=== PATIENT | male | born 1995 | race Caucasian/White ===

== ENCOUNTER 2018-04-10 06:16 | Emergency (ER) | payer OTHER ==
--- NOTE | 2018-04-10 06:45 | ER Document Report ---
ED General - General Chief Complaint: Passed Out Prior to Arrival Stated Complaint: KNEE SWELLING Time Seen by Provider: 04/10/18 06:43 Mode of Arrival: Ambulatory Information source: Patient Notes: 22-year-old male with no reported past medical history presents via private vehicle from home after having 2 syncopal episodes this morning. Patient states that he awoke this morning and went to the bathroom. He states that he was sitting on the toilet when he experienced a sharp lower quadrant abdominal pain which caused him to pass out. Patient states that he became clammy, nauseous and the next thing he knew he was waking up on the toilet. He denies falling off the toilet, hitting his head. He states that he then went to his parents room to awake his father and collapsed again. Patient recently returned from a trip to [place]. He reports that yesterday he had a generalized aching feeling. He denies any fever, chills, nausea, vomiting, dysuria, hematuria. Associated symptoms included palpitations, chest heaviness and shortness of breath. Patient also complaining of left knee swelling that started 2 days prior to arrival without injury. Father is at the bedside and denies any family history of early cardiac , disease. TRAVEL OUTSIDE OF THE [place] IN LAST 30 DAYS: No - HPI Onset: Just prior to arrival Onset/Duration: Sudden Severity: Mild Associated symptoms: Body/muscle aches, Chest pain, Shortness of breath. denies : Fever, Headache, Hurts to breath, Nausea, Vomiting Exacerbated by: Denies Relieved by: Denies Similar symptoms previously: No Recently seen / treated by doctor: No - Related Data Allergies/Adverse Reactions: oxycodone Allergy (Verified 04/10/18 06:21) Past Medical History - General Information source: Patient, Parent, Relative - Social History Smoking Status: Never Smoker Frequency of alcohol use: None Drug Abuse: None Lives with: Family, Spouse/Significant other Family History: Reviewed & Not Pertinent Patient has suicidal ideation: No Patient has homicidal ideation: No - Medical History Medical History: Negative Review of Systems - Review of Systems Notes: REVIEW OF SYSTEMS: CONSTITUTIONAL : Denies fever, chills, or sweats. Denies recent illness. Denies weight loss, recent hospitalizations. EENT: Denies visual changes, eye pain. Denies nasal or sinus congestion or discharge. Denies sore throat, oral lesions, difficulty swallowing. CARDIOVASCULAR: Denies chest pain. Denies palpitations. Denies lower extremity edema. RESPIRATORY: Denies cough, cold, or chest congestion. Denies shortness of breath, wheezing. GASTROINTESTINAL: Denies abdominal pain or distention. Denies nausea, vomiting , or diarrhea. Denies blood in vomitus, stools, or per rectum. Denies black, tarry stools. Denies constipation. GENITOURINARY: Denies difficulty urinating, painful urination, frequency, blood in urine, or vaginal discharge. MUSCULOSKELETAL: Denies back or neck pain or stiffness. SKIN: Denies rash, lesions or sores. HEMATOLOGIC : Denies easy bruising or bleeding. LYMPHATIC: Denies swollen glands. NEUROLOGICAL: Denies confusion or altered mental status. Denies dizziness or lightheadedness. Denies headache. Denies weakness or paralysis. Denies problems difficulty with ambulation, slurred speech. Denies sensory loss, numbness, or tingling. Denies seizures. PSYCHIATRIC: Denies anxiety or stress. Denies depression, suicidal ideation, or homicidal ideation. Denies visual or auditory hallucinations. Physical Exam - Vital signs Vitals: Temp Pulse Resp BP Pulse Ox 99.4 F 72 18 122/69 100 04/10/18 06:35 04/10/18 06:35 04/10/18 06:35 04/10/18 06:35 04/10/18 06:35 - Notes Notes: PHYSICAL EXAMINATION: GENERAL: Well-appearing, well-nourished and in no acute distress. HEAD: Atraumatic, normocephalic. EYES: Pupils equal round and reactive to light, extraocular movements intact, sclera anicteric, conjunctiva are normal. ENT: Nares patent, oropharynx clear without exudates. Moist mucous membranes. NECK: Normal range of motion, supple without lymphadenopathy LUNGS: Breath sounds clear to auscultation bilaterally and equal. No wheezes rales or rhonchi. HEART: Regular rate and rhythm without murmurs ABDOMEN: Soft, nontender, nondistended abdomen. No guarding, no rebound. No masses appreciated. Musculoskeletal: Left knee with prepatellar bursitis, no erythema, no warmth, full range of motion. NEUROLOGICAL: Cranial nerves grossly intact. Normal speech, normal gait. Normal sensory, motor exams PSYCH: Normal mood, normal affect. SKIN: Warm, Dry, normal turgor, no rashes or lesions noted. Course - Re-evaluation Re-evalutation: Laboratory 04/10/18 04/10/18 04/10/18 07:02 07:02 07:02 WBC 12.9 H RBC 4.76 Hgb 14.5 Hct 42.0 MCV 88 MCH 30.5 MCHC 34.5 RDW 12.9 Plt Count 228 Seg Neutrophils % 76.3 Lymphocytes % 11.4 L Monocytes % 10.8 Eosinophils % 1.3 Basophils % 0.2 Absolute Neutrophils 9.9 H Absolute Lymphocytes 1.5 Absolute Monocytes 1.4 Absolute Eosinophils 0.2 Absolute Basophils 0.0 D-Dimer 0.47 Sodium 144.2 Potassium 4.4 Chloride 101 Carbon Dioxide 30 Anion Gap 13 BUN 15 Creatinine 0.78 Est GFR ( Amer) > 60 Est GFR (Non-Af Amer) > 60 Glucose 110 Calcium 9.6 Total Bilirubin 0.4 Direct Bilirubin 0.3 Neonat Total Bilirubin Not Reportable Neonat Direct Bilirubin Not Reportable Neonat Indirect Bili Not Reportable AST 16 L ALT 19 L Alkaline Phosphatase 69 Troponin I Total Protein 7.1 Albumin 4.6 Urine Color Urine Appearance Urine pH Ur Specific [place] Urine Protein Urine Glucose (UA) Urine Ketones Urine Blood Urine Nitrite Urine Bilirubin Urine Urobilinogen Ur Leukocyte Esterase Urine WBC (Auto) Urine RBC (Auto) Urine Bacteria (Auto) Amorphous Sediment Auto Urine Mucus (Auto) Urine Ascorbic Acid Urine Opiates Screen Urine Methadone Screen Ur Barbiturates Screen Ur Phencyclidine Scrn Ur Amphetamines Screen U Benzodiazepines Scrn Urine Cocaine Screen U Marijuana (THC) Screen 04/10/18 04/10/18 04/10/18 07:02 09:45 09:45 WBC RBC Hgb Hct MCV MCH MCHC RDW Plt Count Seg Neutrophils % Lymphocytes % Monocytes % Eosinophils % Basophils % Absolute Neutrophils Absolute Lymphocytes Absolute Monocytes Absolute Eosinophils Absolute Basophils D-Dimer Sodium Potassium Chloride Carbon Dioxide Anion Gap BUN Creatinine Est GFR ( Amer) Est GFR (Non-Af Amer) Glucose Calcium Total Bilirubin Direct Bilirubin Neonat Total Bilirubin Neonat Direct Bilirubin Neonat Indirect Bili AST ALT Alkaline Phosphatase Troponin I < 0.012 Total Protein Albumin Urine Color YELLOW Urine Appearance CLEAR Urine pH 7.0 Ur Specific [place] 1.019 Urine Protein NEGATIVE Urine Glucose (UA) NEGATIVE Urine Ketones NEGATIVE Urine Blood NEGATIVE Urine Nitrite NEGATIVE Urine Bilirubin NEGATIVE Urine Urobilinogen NEGATIVE Ur Leukocyte Esterase NEGATIVE Urine WBC (Auto) 4 Urine RBC (Auto) 0 Urine Bacteria (Auto) TRACE Amorphous Sediment Auto TRACE Urine Mucus (Auto) RARE Urine Ascorbic Acid NEGATIVE Urine Opiates Screen NEGATIVE Urine Methadone Screen NEGATIVE Ur Barbiturates Screen NEGATIVE Ur Phencyclidine Scrn NEGATIVE Ur Amphetamines Screen NEGATIVE U Benzodiazepines Scrn NEGATIVE Urine Cocaine Screen NEGATIVE U Marijuana (THC) Screen NEGATIVE Chest X-Ray 04/10/18 07:01 IMPRESSION: No acute cardiopulmonary findings. Knee X-Ray 04/10/18 07:01 IMPRESSION: Small left knee effusion. 04/10/18 08:29 Patient is orthostatic negative 04/10/18 15:56 04/10/18 15:57 22-year-old male with no reported past medical history presents via private vehicle from home after having 2 syncopal episodes this morning. Patient states that he awoke this morning and went to the bathroom. He states that he was sitting on the toilet when he experienced a sharp lower quadrant abdominal pain which caused him to pass out. Patient states that he became clammy, nauseous and the next thing he knew he was waking up on the toilet. He denies falling off the toilet, hitting his head. He states that he then went to his parents room to awake his father and collapsed again. Patient recently returned from a trip to [place]. He reports that yesterday he had a generalized aching feeling. Patient was seen by myself upon arrival. Vital signs were reviewed. Patient is afebrile, normotensive and not hypoxic. Patient does not appear toxic or dehydrated. They are in no acute distress. Previous medical records and nursing notes reviewed. Significant findings include mild swelling of the left knee that is not consistent with septic joint. Patient's labs are essentially normal except for a mildly elevated white count. Patient received IV fluids, Zofran, Toradol during his ED course. On reevaluation patient states he is feeling better. He has not had a recurrence of nausea, abdominal pain or dizziness. Because of the patient's recent trip to [place] his general malaise and myalgia I did test for Lyme and Bug Tussle spotted fever. Doxycycline prescribed. Patient advised not to drive until seen by his primary care physician. Patient will follow up with his primary care physician when he gets home in the next few days. Patient provided the opportunity to ask questions, and express concerns. Discharge instructions discussed. Patient is agreeable with discharge home. Return indications explained and discussed with the patient who displays understanding. Patient encouraged to return to the emergency department immediately with any concerns. - Vital Signs Vital signs: Temp Pulse Resp BP Pulse Ox 99.4 F 82 18 108/60 100 04/10/18 06:35 04/10/18 08:25 04/10/18 06:35 04/10/18 10:00 04/10/18 10:00 - Laboratory Result Diagrams: 04/10/18 07:02 04/10/18 07:02 Laboratory results interpreted by me: 04/10/18 04/10/18 07:02 07:02 WBC 12.9 H Lymphocytes % 11.4 L Absolute Neutrophils 9.9 H AST 16 L ALT 19 L - Diagnostic Test Radiology reviewed: Image reviewed, Reports reviewed - EKG Interpretation by Me EKG shows normal: Sinus rhythm Rate: Normal Rhythm: NSR When compared to previous EKG there are: Previous EKG unavailable Discharge - Discharge Clinical Impression: Vasovagal syncope, Myalgia Left knee pain Qualifiers: Chronicity: acute Qualified Code(s): M25.562 - Pain in left knee Leukocytosis Qualifiers: Leukocytosis type: unspecified Qualified Code(s): D72.829 - Elevated white blood cell count, unspecified Condition: Good Disposition: HOME, SELF-CARE Instructions: Knee Effusion ([facility]), Syncopal Episode ([facility]), Viral Syndrome ([facility]) Additional Instructions: Do not drive until evaluated by your primary care physician. Follow up with your physician tomorrow for further care or return to the ED IMMEDIATELY if symptoms worsen or new concerns occur. If you cannot afford to follow up with your primary care physician a list of low cost clinics have been provided at the end of your discharge papers as well. Prescriptions: Doxycycline Hyclate 100 mg PO BID #14 capsule Referrals: CHELSEA MUJICA MD [NO LOCAL MD] - Follow up as needed
[2018-04-10 07:19] LABS: ABSOLUTE EOSINOPHILS # (AUTO) 0.2 10^3/uL (0.0-0.6); ABSOLUTE LYMPHOCYTES (AUTO) 1.5 10^3/uL (0.5-4.7); ABSOLUTE MONOCYTES (AUTO) 1.4 10^3/uL (0.1-1.4); ABSOLUTE NEUT (AUTO) 9.9 10^3/uL (1.7-8.2); BASOPHILS % (AUTO) 0.2 % (0-2); EOSINOPHILS % (AUTO) 1.3 % (0-6); HEMOGLOBIN 14.5 g/dL (13.5-17.0); LYMPHOCYTES % (AUTO) 11.4 % (13-45); MEAN CORPUSCULAR HEMOGLOBIN 30.5 pg (27.0-33.4); MEAN CORPUSCULAR HGB CONC 34.5 g/dL (32.0-36.0); MEAN CORPUSCULAR VOLUME 88 fl (80-97); MONOCYTES % (AUTO) 10.8 % (3-13); PLATELET COUNT 228 10^3/uL (150-450); RED BLOOD COUNT 4.76 10^6/uL (4.35-5.55); RED CELL DISTRIBUTION WIDTH 12.9 % (11.5-14.0); SEGMENTED NEUTROPHILS % (AUTO) 76.3 % (42-78); TOTAL CELLS COUNTED % (AUTO) 100 %; WHITE BLOOD COUNT 12.9 10^3/uL (4.0-10.5)
--- NOTE | 2018-04-10 07:19 | EKG REPORT ---
SEVERITY:- BORDERLINE ECG - SINUS RHYTHM CONSIDER RIGHT VENTRICULAR HYPERTROPHY : Confirmed by: Amilcar Hernández MD 10-Apr-2018 07:18:24
--- NOTE | 2018-04-10 07:23 | RADIOLOGY REPORT (SQ) ---
EXAM DESCRIPTION: XR CHEST 2 VIEWS COMPLETED DATE/TME: 04/10/2018 07:01 CLINICAL HISTORY: 22 years Male, swelling COMPARISON: None. FINDINGS: Increased lung volume, clear parenchyma, normal cardiac silhouette, and intact bony thorax. IMPRESSION: No acute cardiopulmonary findings.
--- NOTE | 2018-04-10 07:23 | RADIOLOGY REPORT (SQ) ---
EXAM DESCRIPTION: XR KNEE 4 OR MORE VIEWS COMPLETED DATE/TME: 04/10/2018 07:01 CLINICAL HISTORY: 22 years, Male, swelling COMPARISON: None. NUMBER OF VIEWS: 4 LIMITATIONS: None. FINDINGS: Moderate prepatellar soft tissue swelling. Small left knee effusion. IMPRESSION: Small left knee effusion.
[2018-04-10 07:35] LABS: ALANINE AMINOTRANSFERASE 19 U/L (21-72); ALBUMIN 4.6 g/dL (3.5-5.0); ALKALINE PHOSPHATASE 69 U/L (38-126); ANION GAP 13 (5-19); ASPARTATE AMINO TRANSFERASE 16 U/L (17-59); BILIRUBIN,DIRECT 0.3 mg/dL (0.0-0.4); BILIRUBIN,TOTAL 0.4 mg/dL (0.2-1.3); BLOOD UREA NITROGEN 15 mg/dL (7-20); CALCIUM 9.6 mg/dL (8.4-10.2); CARBON DIOXIDE 30 mmol/L (22-30); CHLORIDE 101 mmol/L (98-107); GLUCOSE 110 mg/dL (75-110); POTASSIUM 4.4 mmol/L (3.6-5.0); SODIUM 144.2 mmol/L (137-145); TOTAL PROTEIN 7.1 g/dL (6.3-8.2)
[2018-04-10] MEDS ORDERED: NORMAL SALINE 1000 ML 1,000 ML IV ONE ×2 (08:00→09:26)
[2018-04-10] MEDS ORDERED: DOXYCYCLINE HYCLATE 100 MG TABLET PO ONE (08:29)
[2018-04-10] MEDS ORDERED: KETOROLAC TROMETHAMINE INJ/PF 30 MG/1 ML SDV IV ONE (09:26)
[2018-04-10 10:04] LABS: AMORPHOUS SEDIMENT,URINE TRACE /HPF; APPEARANCE,URINE CLEAR; BILIRUBIN,URINE NEGATIVE (NEGATIVE); COLOR,URINE YELLOW; GLUCOSE, URINE NEGATIVE (NEGATIVE); KETONES,URINE NEGATIVE (NEGATIVE); LEUKOCYTE ESTERASE,URINE NEGATIVE (NEGATIVE); NITRITE,URINE NEGATIVE (NEGATIVE); PROTEIN,URINE NEGATIVE (NEGATIVE); URINE SPECIFIC GRAVITY 1.019; UROBILINOGEN,URINE NEGATIVE mg/dL (<2.0)
[2018-04-10 10:11] VITALS: BP 108/60
[2018-04-10 10:26] LABS: URINE AMPHETAMINES SCREEN NEGATIVE; URINE BARBITURATES SCREEN NEGATIVE; URINE BENZODIAZEPINES SCREEN NEGATIVE; URINE COCAINE SCREEN NEGATIVE; URINE MARIJUANA (THC) SCREEN NEGATIVE; URINE METHADONE SCREEN NEGATIVE; URINE PHENCYCLIDINE SCREEN NEGATIVE
[2018-04-14 08:27] LABS: LYME DISEASE IGM AB <0.80 index (0.00-0.79)
== END 2018-04-10 10:56 | disposition home or self-care (01) ==
LOC: ER 06:16
DX: M25.462 Effusion, left knee (principal); M25.562 Pain in left knee; R55 Syncope and collapse; R10.30 Lower abdominal pain, unspecified; D72.829 Elevated white blood cell count, unspecified; M79.1 Myalgia
CPT/HCPCS: 93005; 99284; 96361; 96374; 36415; 85025; 80053; 81001; 84484; 86757; 80307; 85379; 86618 ×2; 86617 ×2; 71046; 73564; 93010; J1885; J7030